=== PATIENT | male | born 1965 | race Two or more races ===

== ENCOUNTER → 2019-04-27 | Outpatient (CLI) | payer BC ==
--- NOTE | 2019-04-27 16:38 | KCIC ---
4 VIEW CERVICAL SPINE SERIES: Clinical indications: Chronic neck pain. No known injury. FINDINGS: No acute fracture or discitis or lytic process or prevertebral soft tissue swelling is evident. There is mild degenerative endplate spurring space narrowing at C4-5. There is moderate degenerative disc space narrowing and endplate spurring at C5-6 and C6-7. IMPRESSION: Moderate degenerative cervical spondylosis. 2 VIEW LUMBAR SPINE SERIES: Clinical indications: Chronic low back pain. No known injury. FINDINGS: The transverse processes are intact. No compression fracture or discitis or lytic process or anterolisthesis is evident. There is mild degenerative endplate spurring without significant disc space narrowing throughout the lumbar spine. There is moderate degenerative endplate spurring and disc space narrowing at L5-S1. IMPRESSION: Mild degenerative lumbar spondylosis. Electronically signed by: Saul Bermeo MD (04/27/2019 4:35 PM) [facility]
== END | disposition home or self-care (01) ==
LOC: KCIC 14:43
PROVIDERS: ATTEND Chiropractor
DX: M47.812 Spondylosis without myelopathy or radiculopathy, cervical region (principal); M48.02 Spinal stenosis, cervical region; M46.02 Spinal enthesopathy, cervical region; M47.816 Spondylosis without myelopathy or radiculopathy, lumbar region; M46.07 Spinal enthesopathy, lumbosacral region; G89.29 Other chronic pain
CPT/HCPCS: 72040; 72100